=== PATIENT | female | born 1955 | race American Indian/Alaskan Native ===

== ENCOUNTER 2017-12-01 06:20 | Day surgery (SDC) | payer OTHER ==
[2017-12-01] MEDS ORDERED: NACL 0.9% 1000 ML 1,000 ML ONE (06:57)
[2017-12-01] MEDS ORDERED: WATER FOR IRRIG STERILE IR ONE (07:10)
[2017-12-01] MEDS ORDERED: DIPRIVAN 10 MG/ML IV ONE ×2 (07:33)
--- NOTE | 2017-12-01 08:18 | Anesthesia Day of Surgery ---
Anesthesia Day of Surgery - Day of Surgery Patient Examined: Yes Patient H&P Reviewed: Yes Patient is NPO: Yes
--- NOTE | 2017-12-01 08:18 | Anesthesia Consultation ---
Anesthesia Consult and Med Hx Date of service: 12/01/17 - Airway Anesthetic Teeth Evaluation: Dentures (upper and lower ) ROM Head & Neck: Adequate Mental/Hyoid Distance: Adequate Mallampati Class: Class I Intubation Access Assessment: Good - Pulmonary Exam CTA: Yes - Cardiac Exam Cardiac Exam: RRR - Pre-Operative Health Status ASA Pre-Surgery Classification: ASA3 Proposed Anesthetic Plan: MAC - Cardiovascular System Hx Hypertension: Yes - Central Nervous System Hx Seizures: Yes (daily keppra) CVA: Yes (2017, no deficits ) - Gastrointestinal Hx Gastroesophageal Reflux Disease: Yes (controlled)
--- NOTE | 2017-12-01 08:19 | Short Stay Summary ---
Short Stay Documentation - Allergies and Medications Current Medications: Allergies No Known Allergies Allergy (Verified 12/01/17 06:59) - Brief post op/procedure progress note Date of procedure: 12/01/17 Pre-op diagnosis: Colon cancer screening Post-op diagnosis: same (1. Colon polyps 2. Internal hemorrhoids(minimal)) Procedure: Colonoscopy with snare polypectomy and with biopsy Anesthesia: MAC Findings: as above Surgeon: RADHA DOWELL Estimated blood loss: none Pathology: list (1. ileocecal valve polyp 2. Sigmoid polyp) Specimen disposition: to lab - Disposition Condition at discharge: Stable Disposition: [id number] TO HOME OR SELFCARE Short Stay Discharge Plan Activity: no restrictions Weight Bearing Status: Full Weight Bearing Diet: regular, low salt Additional Instructions: Post Sedation D/C Instructions When you return home you may resume your regular diet unless otherwise directed. -Go directly home from the hospital and rest quietly. You may resume normal activities tomorrow. -Do NOT drive, return to work, operate any machinery or make any important personal or business decisions today. -Do NOT drink any alcohol or take nerve or sleeping drugs. They add to the effects of the medicine still present in your body. Follow up with: DOMINIQUE MATTSON MD [Primary Care Provider] - 7 Days
[2017-12-01 08:33] VITALS: BP 120/42
--- NOTE | 2017-12-01 09:48 | Post Anesthesia Evaluation ---
- Post Anesthesia Evaluation Patient Participated: Yes Airway Patent: Yes Stable Respiratory Function: Yes Nausea/Vomiting: No Temp > 96.8F: Yes Pain Manageable: Yes Adequeate Hydration: Yes Anesthesia Complications: No
[2017-12-01] MEDS ORDERED: NACL 0.9% 1000 ML 1,000 ML IV SCH (11:00)
== END 2017-12-01 08:57 | disposition home or self-care (01) ==
LOC: GIO 06:20
PROVIDERS: ATTEND Internal Medicine Gastroenterology
DX: Z12.11 Encounter for screening for malignant neoplasm of colon (principal); D12.0 Benign neoplasm of cecum; D12.5 Benign neoplasm of sigmoid colon; K64.8 Other hemorrhoids; K21.9 Gastro-esophageal reflux disease without esophagitis; I10 Essential (primary) hypertension; Z86.73 Personal history of transient ischemic attack (TIA), and cerebral infarction without residual deficits
CPT/HCPCS: 45380; 45385; 88305; J2704; J7030